=== PATIENT | male | born 1950 | race Hispanic/Latino ===

== ENCOUNTER → 2017-08-17 | Outpatient (CLI) | payer MEDICARE ==
[~2017-08-17] MED LIST: ATORVASTATIN CA20 MG PO; GLIMEPIRIDE2 MG PO; LOSARTAN POTASS25 MG PO; METFORMIN HCL500 MG PO; MINOCYCLINE HCL50 MG PO; OMEPRAZOLE40 MG PO
== END ==
LOC: WCC 07:00
PROVIDERS: ATTEND Podiatrist Foot & Ankle Surgery
DX: E11.621 Type 2 diabetes mellitus with foot ulcer (principal); E11.65 Type 2 diabetes mellitus with hyperglycemia; L97.422 Non-pressure chronic ulcer of left heel and midfoot with fat layer exposed; I10 Essential (primary) hypertension; E78.2 Mixed hyperlipidemia; Z01.810 Encounter for preprocedural cardiovascular examination; Z01.811 Encounter for preprocedural respiratory examination

== ENCOUNTER → 2017-08-24 | Outpatient (CLI) | payer MEDICARE ==
[~2017-08-24] MED LIST changes: +LIDOCAINE VISC 2% SOLN 15 ML UDC ONE
== END ==
LOC: WCC 08:51
PROVIDERS: ATTEND Podiatrist Foot & Ankle Surgery
DX: E11.621 Type 2 diabetes mellitus with foot ulcer (principal); E11.65 Type 2 diabetes mellitus with hyperglycemia; E11.40 Type 2 diabetes mellitus with diabetic neuropathy, unspecified; L97.422 Non-pressure chronic ulcer of left heel and midfoot with fat layer exposed; I10 Essential (primary) hypertension; E78.2 Mixed hyperlipidemia; Z01.810 Encounter for preprocedural cardiovascular examination; Z01.811 Encounter for preprocedural respiratory examination

== ENCOUNTER → 2017-08-31 | Outpatient (CLI) | payer MEDICARE ==
[~2017-08-31] MED LIST changes: -LIDOCAINE VISC 2% SOLN 15 ML UDC ONE
== END ==
LOC: EDSTATUS 07:54 → WCC 07:55
PROVIDERS: ATTEND Podiatrist Foot & Ankle Surgery
DX: E11.621 Type 2 diabetes mellitus with foot ulcer (principal); E11.65 Type 2 diabetes mellitus with hyperglycemia; E11.40 Type 2 diabetes mellitus with diabetic neuropathy, unspecified; M86.172 Other acute osteomyelitis, left ankle and foot; L97.423 Non-pressure chronic ulcer of left heel and midfoot with necrosis of muscle; L97.422 Non-pressure chronic ulcer of left heel and midfoot with fat layer exposed; I10 Essential (primary) hypertension; E78.2 Mixed hyperlipidemia; Z01.810 Encounter for preprocedural cardiovascular examination; Z01.811 Encounter for preprocedural respiratory examination

== ENCOUNTER → 2017-09-14 | Outpatient (CLI) | payer MEDICARE | LOC: WCC 08:22 | PROVIDERS: ATTEND Podiatrist Foot & Ankle Surgery | DX: E11.65 Type 2 diabetes mellitus with hyperglycemia (principal); E11.621 Type 2 diabetes mellitus with foot ulcer; E11.40 Type 2 diabetes mellitus with diabetic neuropathy, unspecified; L97.422 Non-pressure chronic ulcer of left heel and midfoot with fat layer exposed; L97.423 Non-pressure chronic ulcer of left heel and midfoot with necrosis of muscle; M86.172 Other acute osteomyelitis, left ankle and foot; I10 Essential (primary) hypertension; E78.2 Mixed hyperlipidemia; Z01.810 Encounter for preprocedural cardiovascular examination; Z01.811 Encounter for preprocedural respiratory examination ==

== ENCOUNTER 2017-10-19 07:56 | Outpatient (RCR) | payer MEDICARE ==
[~2017-10-19 07:56] MED LIST changes: +LIDOCAINE VISC 2% SOLN 15 ML UDC ONE
[2017-10-19] MEDS ORDERED: LIDOCAINE VISC 2% SOLN 15 ML UDC ONE (15:21)
== END 2017-10-20 ==
LOC: WCC 07:56
PROVIDERS: ATTEND Podiatrist Foot & Ankle Surgery
DX: E11.65 Type 2 diabetes mellitus with hyperglycemia (principal); E11.40 Type 2 diabetes mellitus with diabetic neuropathy, unspecified; E11.621 Type 2 diabetes mellitus with foot ulcer; L97.422 Non-pressure chronic ulcer of left heel and midfoot with fat layer exposed; I10 Essential (primary) hypertension; E78.2 Mixed hyperlipidemia; Z01.810 Encounter for preprocedural cardiovascular examination; Z01.811 Encounter for preprocedural respiratory examination
CPT/HCPCS: 36415; 82948

== ENCOUNTER 2017-11-16 09:56 | Outpatient (RCR) | payer MEDICARE ==
[~2017-11-16 09:56] MED LIST changes: -LIDOCAINE VISC 2% SOLN 15 ML UDC ONE
== END 2017-11-20 ==
LOC: WCC 09:56
PROVIDERS: ATTEND Podiatrist Foot & Ankle Surgery
DX: E11.621 Type 2 diabetes mellitus with foot ulcer (principal); E11.40 Type 2 diabetes mellitus with diabetic neuropathy, unspecified; E11.65 Type 2 diabetes mellitus with hyperglycemia; L97.422 Non-pressure chronic ulcer of left heel and midfoot with fat layer exposed; I10 Essential (primary) hypertension; E78.2 Mixed hyperlipidemia; Z01.810 Encounter for preprocedural cardiovascular examination; Z01.811 Encounter for preprocedural respiratory examination
CPT/HCPCS: 36415; 83036; 84134; 85651

== ENCOUNTER 2017-12-14 07:13 | Outpatient (RCR) | payer MEDICARE ==
[~2017-12-14 07:13] MED LIST changes: +LIDOCAINE VISC 2% SOLN 15 ML UDC ONE
[2017-12-14] MEDS ORDERED: LIDOCAINE VISC 2% SOLN 15 ML UDC ONE (17:40)
== END 2017-12-20 ==
LOC: WCC 07:13
PROVIDERS: ATTEND Podiatrist Foot & Ankle Surgery
DX: E11.621 Type 2 diabetes mellitus with foot ulcer (principal); E11.40 Type 2 diabetes mellitus with diabetic neuropathy, unspecified; E11.65 Type 2 diabetes mellitus with hyperglycemia; L97.422 Non-pressure chronic ulcer of left heel and midfoot with fat layer exposed; E78.2 Mixed hyperlipidemia; I10 Essential (primary) hypertension; Z01.810 Encounter for preprocedural cardiovascular examination; Z01.811 Encounter for preprocedural respiratory examination
CPT/HCPCS: 11042 ×2; 15275; 36415; 82948; Q4131

== ENCOUNTER 2018-01-18 07:20 | Outpatient (RCR) | payer MEDICARE ==
[2018-01-18] MEDS ORDERED: LIDOCAINE VISC 2% SOLN 15 ML UDC ONE (15:25)
== END 2018-01-20 ==
LOC: WCC 07:20
PROVIDERS: ATTEND Podiatrist Foot & Ankle Surgery
DX: E11.621 Type 2 diabetes mellitus with foot ulcer (principal); E11.65 Type 2 diabetes mellitus with hyperglycemia; E11.40 Type 2 diabetes mellitus with diabetic neuropathy, unspecified; L97.422 Non-pressure chronic ulcer of left heel and midfoot with fat layer exposed; I10 Essential (primary) hypertension; E78.2 Mixed hyperlipidemia; Z01.810 Encounter for preprocedural cardiovascular examination; Z01.811 Encounter for preprocedural respiratory examination
CPT/HCPCS: 15275 ×4; 29445 ×4; 36415 ×2; 82948 ×2; Q4131 ×4

== ENCOUNTER 2018-02-15 08:43 | Outpatient (RCR) | payer MEDICARE | END 2018-02-19 | LOC: WCC 08:43 | PROVIDERS: ATTEND Podiatrist Foot & Ankle Surgery | DX: E11.621 Type 2 diabetes mellitus with foot ulcer (principal); E11.40 Type 2 diabetes mellitus with diabetic neuropathy, unspecified; E11.65 Type 2 diabetes mellitus with hyperglycemia; L97.422 Non-pressure chronic ulcer of left heel and midfoot with fat layer exposed; E78.2 Mixed hyperlipidemia; I10 Essential (primary) hypertension; Z01.810 Encounter for preprocedural cardiovascular examination; Z01.811 Encounter for preprocedural respiratory examination | CPT/HCPCS: 15275; 29445 ×3; Q4131 ==

== ENCOUNTER → 2018-02-22 | Outpatient (CLI) | payer MEDICARE ==
[~2018-02-22] MED LIST changes: -LIDOCAINE VISC 2% SOLN 15 ML UDC ONE
== END ==
LOC: WCC 11:33
PROVIDERS: ATTEND Family Medicine Adult Medicine
DX: E11.65 Type 2 diabetes mellitus with hyperglycemia (principal); E11.40 Type 2 diabetes mellitus with diabetic neuropathy, unspecified; E11.621 Type 2 diabetes mellitus with foot ulcer; L97.422 Non-pressure chronic ulcer of left heel and midfoot with fat layer exposed; S90.822A Blister (nonthermal), left foot, initial encounter; I10 Essential (primary) hypertension; E78.2 Mixed hyperlipidemia; Z01.810 Encounter for preprocedural cardiovascular examination; Z01.811 Encounter for preprocedural respiratory examination

== ENCOUNTER → 2018-03-01 | Outpatient (CLI) | payer MEDICARE | LOC: WCC 10:41 | PROVIDERS: ATTEND Family Medicine Adult Medicine | DX: E11.621 Type 2 diabetes mellitus with foot ulcer (principal); E11.40 Type 2 diabetes mellitus with diabetic neuropathy, unspecified; E11.65 Type 2 diabetes mellitus with hyperglycemia; L97.422 Non-pressure chronic ulcer of left heel and midfoot with fat layer exposed; S90.822A Blister (nonthermal), left foot, initial encounter; I10 Essential (primary) hypertension; E78.2 Mixed hyperlipidemia; Z01.810 Encounter for preprocedural cardiovascular examination; Z01.811 Encounter for preprocedural respiratory examination ==

== ENCOUNTER → 2018-03-08 | Outpatient (CLI) | payer MEDICARE | LOC: WCC 14:24 | PROVIDERS: ATTEND Family Medicine Adult Medicine | DX: E11.65 Type 2 diabetes mellitus with hyperglycemia (principal); E11.621 Type 2 diabetes mellitus with foot ulcer; L97.422 Non-pressure chronic ulcer of left heel and midfoot with fat layer exposed; S90.822A Blister (nonthermal), left foot, initial encounter; I10 Essential (primary) hypertension; E78.2 Mixed hyperlipidemia; Z01.810 Encounter for preprocedural cardiovascular examination; Z01.811 Encounter for preprocedural respiratory examination ==

== ENCOUNTER → 2018-03-15 | Outpatient (CLI) | payer MEDICARE | LOC: WCC 10:16 | PROVIDERS: ATTEND Family Medicine Adult Medicine | DX: E11.621 Type 2 diabetes mellitus with foot ulcer (principal); E11.65 Type 2 diabetes mellitus with hyperglycemia; E11.40 Type 2 diabetes mellitus with diabetic neuropathy, unspecified; L97.422 Non-pressure chronic ulcer of left heel and midfoot with fat layer exposed; S90.822A Blister (nonthermal), left foot, initial encounter; I10 Essential (primary) hypertension; E78.2 Mixed hyperlipidemia; Z01.810 Encounter for preprocedural cardiovascular examination; Z01.811 Encounter for preprocedural respiratory examination ==

== ENCOUNTER → 2018-03-29 | Outpatient (CLI) | payer MEDICARE | LOC: WCC 09:23 | PROVIDERS: ATTEND Family Medicine Adult Medicine | DX: E11.621 Type 2 diabetes mellitus with foot ulcer (principal); E11.65 Type 2 diabetes mellitus with hyperglycemia; E11.40 Type 2 diabetes mellitus with diabetic neuropathy, unspecified; L97.422 Non-pressure chronic ulcer of left heel and midfoot with fat layer exposed; S90.822A Blister (nonthermal), left foot, initial encounter; E78.2 Mixed hyperlipidemia; I10 Essential (primary) hypertension; Z01.810 Encounter for preprocedural cardiovascular examination; Z01.811 Encounter for preprocedural respiratory examination ==

== ENCOUNTER → 2018-04-12 | Outpatient (CLI) | payer MEDICARE | LOC: WCC 09:22 | PROVIDERS: ATTEND Podiatrist Foot & Ankle Surgery | DX: E11.65 Type 2 diabetes mellitus with hyperglycemia (principal); E11.40 Type 2 diabetes mellitus with diabetic neuropathy, unspecified; E11.621 Type 2 diabetes mellitus with foot ulcer; L97.422 Non-pressure chronic ulcer of left heel and midfoot with fat layer exposed; I10 Essential (primary) hypertension; E78.2 Mixed hyperlipidemia; S90.822A Blister (nonthermal), left foot, initial encounter; Z01.810 Encounter for preprocedural cardiovascular examination; Z01.811 Encounter for preprocedural respiratory examination ==

== ENCOUNTER 2020-06-20 12:52 | Outpatient (RCR) | payer OTHER ==
[2020-06-13 16:16] LABS: BASOPHILS % 0.5 % (0.0-1.0); EOSINOPHILS # (AUTO) 0.2 (0.0-0.4); EOSINOPHILS % 3.6 % (0.0-6.0); HEMATOCRIT 33.5 % (38.2-49.6); HEMOGLOBIN 10.9 g/dL (14.0-18.0); LYMPHOCYTES # (AUTO) 1.7 (1.0-3.2); LYMPHOCYTES % 28.4 % (18.0-39.1); MEAN CORPUSCULAR HGB CONC 32.5 g/dL (31-35); MONOCYTES # (AUTO) 0.6 (0.2-0.8); MONOCYTES % 9.8 % (4.4-11.3); NEUTROPHILS # (AUTO) 3.5 (2.1-6.9); NEUTROPHILS % 57.5 % (38.7-80.0); PLATELET COUNT 274 x10e3/uL (140-360); RED BLOOD COUNT 4.19 x10e6/uL (4.3-5.7); RED CELL DISTRIBUTION WIDTH 13.9 % (11.7-14.4)
[2020-06-13 16:29] LABS: ALBUMIN 3.6 g/dL (3.5-5.0); ALBUMIN/GLOBULIN RATIO 0.9 (0.8-2.0); CALCIUM 8.5 mg/dL (8.4-10.2); CREATININE, SERUM 1.23 mg/dL (0.72-1.25)
--- NOTE | 2020-06-14 14:53 | Diagnostic Imaging Report ---
Exam: Left foot 3 views History: Diabetes mellitus Comparison: 05/25/2017 Findings: No acute fracture. Postsurgical change from multiple amputations including across the first metatarsal base, third MTP joint, and phalanges second and fourth toes. Probable ulceration of the plantar foot. Ill-defined cortex with periosteal thickening involving the stump of the first metatarsal. This has progressed from prior foot radiograph May 25, 2017 Calcaneal enthesophytes. Impression: Probable osteomyelitis of the stump of the first metatarsal. MRI of the midfoot/forefoot may be of benefit. Signed by: Dr. Chace Celestin M.D. on 06/14/2020 2:50 PM
[~2020-06-20 12:52] MED LIST changes: +AMMONIUM LACTATE 12% LOTION 225GM BTL ONE; +LIDOCAINE/PRILOCAINE 2.5-2.5% KIT ONE
[2020-06-20] MEDS ORDERED: AMMONIUM LACTATE 12% LOTION 225GM BTL ONE ×2 (13:16→16:33)
[2020-06-20] MEDS ORDERED: LIDOCAINE/PRILOCAINE 2.5-2.5% KIT ONE ×2 (13:16→16:33)
== END 2020-06-22 ==
LOC: WCC 12:52
PROVIDERS: ATTEND Family Medicine Adult Medicine
DX: E11.621 Type 2 diabetes mellitus with foot ulcer (principal); E11.40 Type 2 diabetes mellitus with diabetic neuropathy, unspecified; E11.65 Type 2 diabetes mellitus with hyperglycemia; L97.426 Non-pressure chronic ulcer of left heel and midfoot with bone involvement without evidence of necrosis; S90.822A Blister (nonthermal), left foot, initial encounter; I10 Essential (primary) hypertension; E78.2 Mixed hyperlipidemia; Z01.810 Encounter for preprocedural cardiovascular examination; Z01.811 Encounter for preprocedural respiratory examination
CPT/HCPCS: 36415; 80053; 83036; 84134; 85025; 85651; 86140; 87071; 87075; 87186; 87205

== ENCOUNTER → 2020-06-26 | Outpatient (CLI) | payer MEDICARE ==
[~2020-06-26] MED LIST changes: -AMMONIUM LACTATE 12% LOTION 225GM BTL ONE; -LIDOCAINE/PRILOCAINE 2.5-2.5% KIT ONE
--- NOTE | 2020-06-26 12:06 | Diagnostic Imaging Report ---
TECHNIQUE: Magnetic resonance imaging of the LEFT foot was performed WITHOUT injected contrast. HISTORY: Left foot pain, evaluate for infection COMPARISON: None available. DISCUSSION: Soft tissue ulceration of the medial plantar midfoot with sinus tract extending to the first metatarsal base stump with bone marrow edema and T1 replacement. 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 The additional amputations of the distal forefoot not in the field of view. Limited evaluation for delineation of an abscess due to lack of contrast. IMPRESSION: Osteomyelitis of the first metatarsal base stump Signed by: Dr. Chace Celestin M.D. on 06/26/2020 12:02 PM
== END ==
LOC: MRI 09:49
PROVIDERS: ATTEND Family Medicine Adult Medicine
DX: E11.621 Type 2 diabetes mellitus with foot ulcer (principal); L97.423 Non-pressure chronic ulcer of left heel and midfoot with necrosis of muscle

== ENCOUNTER 2020-07-04 16:28 | Outpatient (RCR) | payer MEDICARE ==
[~2020-07-04 16:28] MED LIST changes: +AMMONIUM LACTATE 12% LOTION 225GM BTL ONE; +LIDOCAINE/PRILOCAINE 2.5-2.5% KIT ONE; +MINERAL OIL/PETROLAT/GLYCERI 6OZ BTL ONE
== END 2020-07-22 ==
LOC: WCC 16:28
PROVIDERS: ATTEND Family Medicine Adult Medicine
DX: E11.621 Type 2 diabetes mellitus with foot ulcer (principal); E11.40 Type 2 diabetes mellitus with diabetic neuropathy, unspecified; E11.65 Type 2 diabetes mellitus with hyperglycemia; L97.426 Non-pressure chronic ulcer of left heel and midfoot with bone involvement without evidence of necrosis; S90.822A Blister (nonthermal), left foot, initial encounter; I10 Essential (primary) hypertension; E78.2 Mixed hyperlipidemia; Z01.810 Encounter for preprocedural cardiovascular examination; Z01.811 Encounter for preprocedural respiratory examination